=== PATIENT | female | born 1995 | race Caucasian/White ===

== ENCOUNTER → 2016-07-01 | Outpatient (CLI) | payer OTHER ==
--- NOTE | 2016-07-01 18:46 | DIAGNOSTIC IMAGING REPORT ---
MRI OF THE RIGHT KNEE WITHOUT CONTRAST CLINICAL HISTORY: Persistent medial right knee pain. COMPARISON STUDY: Right knee radiographs January 21, 2015. TECHNIQUE: Utilizing a 1.5 Sabrina magnet and dedicated coil, multiplanar, multiecho imaging of the right knee was performed without intravenous or intraarticular contrast. FINDINGS: Alignment of the right knee is anatomic. There is no joint effusion. The cruciate and collateral ligaments are intact. There is no meniscal tear. Intrasubstance signal within the posterior horn of the medial meniscus does not extend to articular surface. The findings do not meet criteria for a meniscal tear. Extensor mechanism is intact. Note is made of moderate edema within the anterior aspect of the medial femoral condyle. There is a linear T1 and T2 hypointense focus within this area of edema. This is shown best on coronal image 10 and sagittal image 17. Overlying cartilage is thinned. No cartilage abnormality within the lateral or patellofemoral compartments is present. IMPRESSION: 1. Moderate marrow edema within the anterior aspect of the medial femoral condyle with associated linear T1 and T2 hypointense subchondral signal abnormality and thinning of the overlying cartilage. Differential considerations include an osteochondral defect or nondisplaced subchondral fracture. No evidence for instability by MRI. 2. Intact cruciate and collateral ligaments. 3. No meniscal tear. Electronically signed by: Marko Calixto M.D. 07/01/2016 6:44 PM Dictated Date/Time: 07/01/2016 6:36 PM
== END | disposition home or self-care (01) ==
LOC: C.MRI 17:06
PROVIDERS: ATTEND Family Medicine
DX: M25.561 Pain in right knee (principal); R93.7 Abnormal findings on diagnostic imaging of other parts of musculoskeletal system